=== PATIENT | female | born 1995 | race Caucasian/White ===

== ENCOUNTER 2020-04-19 13:37 | Inpatient (IN) | payer MEDICAID ==
[~2020-04-19] VITALS: Ht 175.3 cm; Wt 82.5 kg
--- NOTE | 2020-04-19 13:51 | NUR ---
LATE ENTRY FOR 1351: report received from ems, pt veronique. ems called to residence for ams and abnormal respirations - on arrival pt has inspiratory stridor, labored breathing. 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 pt denies any drug use. pt reports she was admitted to [facility] 6 weeks (dc'd 03/08/20) for resp failure secondary to pneumonia. 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 all monitors in place on arrival, pt in negative pressure room, droplet plus precautions in place. EDMD Grande at bedside for initial assessment on arrival.
--- NOTE | 2020-04-19 13:58 | NUR ---
pts mother [phone]- pt requesting staff call to notify of condition
[2020-04-19 13:59] LABS: MEAN CORPUSCULAR HEMOGLOBIN 28.9 pg (27.0-34.8); MEAN CORPUSCULAR HGB CONC 31.6 g/dL (32.4-35.8); MEAN PLATELET VOLUME 9.1 fL (7.4-10.4); PLATELET COUNT 330 x10^3/uL (130-400); RED CELL DISTRIBUTION WIDTH 16.5 % (9.6-15.2)
[2020-04-19] MEDS ORDERED: ALBUTEROL/IPRATROPIUM 2.5MG/0.5MG, 3 ML NPPB ONE (14:00)
[2020-04-19] MEDS ORDERED: SODIUM CHLORIDE FLUSH 10ML SYR IVF ONE (14:00)
[2020-04-19] MEDS ORDERED: SODIUM CHLORIDE 0.9% 1,000ML IVBOLUS ONE (14:00)
[2020-04-19] MEDS ORDERED: PLEASE ENTER HEIGHT AND WEIGHT MC SCH (14:00)
[2020-04-19] MEDS ORDERED: ALBUTEROL/IPRATROPIUM 2.5MG/0.5MG, 3 ML ONE (14:00)
[2020-04-19] MEDS ORDERED: RACEPINEPHRINE INH 2.25%, 0.5ML ONE (14:01)
[2020-04-19 14:10] LABS: ALANINE AMINOTRANSFERASE 24 U/L (12-78); ALBUMIN 3.3 g/dL (3.4-5.0); ANION GAP 7 mmol/L (5-15); CALCIUM 8.4 mg/dL (8.5-10.1); CHLORIDE 111 mmol/L (98-107); CREATININE 1.15 mg/dL (0.55-1.02)
[2020-04-19 14:12] LABS: ALKALINE PHOSPHATASE 57 U/L (45-117); BILIRUBIN,TOTAL 0.4 mg/dL (0.2-1.0); TOTAL PROTEIN 6.7 g/dL (6.4-8.2)
[2020-04-19] MEDS ORDERED: DEXAMETHASONE 4 MG/ML, 5ML ONE (14:18)
--- NOTE | 2020-04-19 14:20 | NUR ---
pt to xray, per MD Grande, xray is priority prior to nebulized meds . pt a&o, resp status unchanged upon transport, speaking in 5-6 word sentences before needing next breath.
[2020-04-19 14:21] LABS: SALICYLATE LEVEL < 1.7 mg/dL (2.8-20.0)
[2020-04-19 14:26] LABS: MD YES
[2020-04-19 14:30] LABS: BAND#(MANUAL) 2.24 x10^3/uL; BANDS%(MANUAL) 8 % (0-7); LYMPH#(MANUAL) 2.52 x10^3/uL (1-3.4); LYMPHS% (MANUAL) 9 % (22-44); MONOS% (MANUAL) 5 % (2-9); SEG#(MANUAL) 21.84 x10^3/uL (1.8-6.8); SEGS% (MANUAL) 78 % (42-75)
[2020-04-19 14:31] LABS: <PLATELET ESTIMATE> ADEQUATE; <RBC MORPHOLOGY> NORMAL; LARGE PLATELETS 1+
--- NOTE | 2020-04-19 14:39 | NUR ---
pt back from xray, remains stridorous, speaking in 5-6 word sentences without needing breath. albuterol neb in progress by this RN, POC discussed with MD. orders requested for nebulized racemic epi and decadron IVP.
--- NOTE | 2020-04-19 14:43 | NUR ---
made aware pt has recently had prolonged hospitalization at [facility], record request in progress by UC.
[2020-04-19] MEDS ORDERED: [UNRECOGNIZED DRUG - OTHER] PO (14:48)
[2020-04-19] MEDS ORDERED: CEFTRIAXONE PMX 1GM/50ML 50 ML IVPB ONE (15:00)
[2020-04-19] MEDS ORDERED: DEXAMETHASONE 4 MG/ML, 1ML IVPush ONE (15:00)
[2020-04-19] MEDS ORDERED: RACEPINEPHRINE INH 2.25%, 0.5ML NPPB ONE (15:00)
--- NOTE | 2020-04-19 15:12 | NUR ---
BEDSIDE REPORT FROM CECILIA RN, ASSUMED CARE OF PT AT THIS TIME. CECILIA RN AT BEDSIDE TO GIVE RACEMIC EPI AND STEROIDS. ON PHONE WITH ANESTHESIA
--- NOTE | 2020-04-19 15:29 | NUR ---
RACEMIC EPI ADMINISTERED, DECADRON ADMIN, PT IS DROWSY, RESPS STILL LABORED, PT IS STILL STRIDOROUS. PUPILS NOW SMALLER, 2MM. LOLI AGUAYO NOTIFIED. ERP HAS REASSESSED PT X 2. ENT AND ANESTHESIA CONSULTED TO ASSESS FOR AIRWAY OPTIONS. NO IMPROVEMENT IN RESPIRATORY STATUS S/P RACEMIC EPI NEB. ALL MONITORS IN PLACE. PT IS SINUS TACH RATE 110'S WITH NO ECTOPY. SPO2 100% ON 2L/MIN VIA NC. LOLI AGUAYO AND ENT MD AT BEDSIDE AT THIS TIME. REPORT GIVEN TO MUKESH SHELDON WHO IS ASSUMING CARE AT THIS TIME.
--- NOTE | 2020-04-19 16:01 | NUR ---
ENT DR AT BEDSIDE, PT TO GO TO CT
--- NOTE | 2020-04-19 16:19 | NUR ---
[facility] - [phone]
[2020-04-19 16:32] LABS: AMPHETAMINE SCREEN, URINE Positive (Negative); BARBITURATE SCREEN, URINE Negative (Negative); BENZODIAZEPINE SCREEN, URINE Negative (Negative); CANNABINOID SCREEN, URINE Negative (Negative); COCAINE SCREEN, URINE Negative (Negative); METHADONE SCREEN, URINE Negative (Negative); OPIATE SCREEN, URINE Positive (Negative)
--- NOTE | 2020-04-19 16:44 | NUR ---
RN TO CT AND BACK WITH PT, PT TOLERATED PROCEDURE WELL, VSS STABLE THROUGHOUT.
--- NOTE | 2020-04-19 17:22 | NUR ---
PER ENT DO NOT USE ANYTHING BEDSIDE A 5 OR 6 ETT TO INTUBATE
[2020-04-19] MEDS ORDERED: POTASSIUM CHLORIDE 40 MEQ in SODIUM CHLORIDE 0.9% 500 ML IV ONE (17:30)
[2020-04-19] MEDS ORDERED: CEFTRIAXONE PMX 1GM/50ML 50 ML ONE (17:35)
--- NOTE | 2020-04-19 17:43 | NUR ---
ENT AT BEDSIDE TO UPDATE PT ON POC, PT DECLINING INTUBATION AT THIS TIME AND WOULD LIKE TO TRY OBSERVATION WITH ABX AND STEROIDS, PT DEMONSTRATES UNDERSTANDING OF RISKS. AWAITING ICU BED. PT ON 2LNC SPO2 98%. PT HAS AUDIBLE STRIDOR WORSE WHEN SLEEPING AND RESOLVED WITH AWAKENING AND HEAD TILT. PT ON MONITOR, CALL LIGHT WITHIN REACH.
[2020-04-19] MEDS ORDERED: RACEPINEPHRINE INH 2.25%, 0.5ML NPPB PRN (18:00)
[2020-04-19] MEDS ORDERED: VANCOMYCIN PER PHARMACY MC PRN (18:00)
[2020-04-19] MEDS ORDERED: ONDANSETRON 2MG/ML, 2ML IVPush PRN (18:00)
[2020-04-19] MEDS ORDERED: NALOXONE 0.4 MG/ML, 1ML IVPush ONE (18:00)
[2020-04-19] MEDS ORDERED: LIDOCAINE 4%, 4 ML SYR/CANN TP ONE (18:16)
[2020-04-19 18:18] LABS: FREE T4 (FREE THYROXINE) 1.33 ng/dL (0.76-1.46)
[2020-04-19] MEDS ORDERED: LIDOCAINE-MPF 2% ,5ML ONE (18:20)
--- NOTE | 2020-04-19 18:23 | NUR ---
PT TAKEN TO OR TO BE INTUBATED WITH ANESTHESIA, RN REPORTED TO ANESTHESIA PER ENT ONLY 5.0 OR 6.0 ETT. REPORT TO ZEB MAYORGA IN ICU.
--- NOTE | 2020-04-19 18:25 | NUR ---
TO CALL PTS MOTHER
[2020-04-19] MEDS ORDERED: NOREPINEPHRINE 8 MG in SODIUM CHLORIDE 0.9% 242 ML IV PRN (18:26)
[2020-04-19] MEDS ORDERED: FENTANYL PF 100 MCG/2ML IVPush PRN (18:30)
[2020-04-19] MEDS ORDERED: PHARMACY MAY ADJ FOR RENAL FX MC SCH (18:30)
[2020-04-19] MEDS ORDERED: FAMOTIDINE 20 MG/2 ML IV SCH (18:30)
[2020-04-19] MEDS ORDERED: DEXTROSE 4 GM TAB.CHEW PO PRN (18:30)
[2020-04-19] MEDS ORDERED: LACTULOSE 20 GM/30 ML UDC NG PRN (18:30)
[2020-04-19] MEDS ORDERED: SENNA 176 MG/5 ML ORAL SOL NG PRN (18:30)
[2020-04-19] MEDS ORDERED: BISACODYL 10 MG SUPP PR PRN (18:30)
[2020-04-19] MEDS ORDERED: SENNA/DOCUSATE TABLET NG PRN (18:30)
[2020-04-19] MEDS ORDERED: GLUCAGON 1 MG IM PRN (18:30)
[2020-04-19] MEDS ORDERED: DEXTROSE 50%, 50ML SYRINGE IVPush PRN (18:30)
[2020-04-19] MEDS ORDERED: SODIUM CHLORIDE FLUSH 10ML SYR IVF PRN (19:00)
[2020-04-19] MEDS: PROPOFOL 100 ML IV PRN (19:22)
[2020-04-19] MEDS ORDERED: VANCOMYCIN 2,000 MG in SODIUM CHLORIDE 0.9% 500 ML IV ONE (19:30)
[2020-04-19] MEDS: POTASSIUM CHLORIDE 20 MEQ in LACTATED RINGERS 1,000 ML IV SCH (19:39)
[2020-04-19] MEDS ORDERED: PHARMACOKINETIC MONITORING MC PRN (20:00)
[2020-04-19] MEDS: FAMOTIDINE 20 MG/2 ML IVPush SCH (20:08)
[2020-04-19] MEDS: DEXAMETHASONE 4 MG/ML, 1ML IVPush SCH (20:08)
[2020-04-19] MEDS: ENOXAPARIN 40 MG/0.4 ML SQ SCH (20:09)
[2020-04-19] MEDS: SODIUM CHLORIDE FLUSH 10ML SYR IVF SCH (20:10)
[2020-04-19 20:40] VITALS: BP 107/71
[2020-04-19 20:43] LABS: MICROSCOPIC NOT IND
[2020-04-19 20:46] LABS: CHLORIDE,URINE RANDOM 149 mmol/L; POTASSIUM,URINE RANDOM 10 mmol/L; SODIUM,URINE RANDOM 134 mmol/L
[2020-04-19] MEDS: MEROPENEM 1 GM in SODIUM CHLORIDE 0.9% 100 ML IV SCH (22:16)
[2020-04-20] MEDS: PROPOFOL 100 ML IV PRN ×2 (01:24→04:42)
[2020-04-20] MEDS: DEXAMETHASONE 4 MG/ML, 1ML IVPush SCH ×4 (01:29→19:32)
[2020-04-20 04:27] VITALS: BP 108/65
[2020-04-20 04:41] LABS: BASOPHILS # (AUTO) 0.02 x10^3/uL (0-0.1); BASOPHILS % (AUTO) 0 % (0-1); EOSINOPHILS # (AUTO) 0.02 x10^3/uL (0-0.4); EOSINOPHILS % (AUTO) 0 % (1-7); LYMPHOCYTES # (AUTO) 1.15 x10^3/uL (1-3.4); LYMPHOCYTES % (AUTO) 14 % (22-44); MD NO; MEAN CORPUSCULAR HEMOGLOBIN 28.6 pg (27.0-34.8); MEAN CORPUSCULAR HGB CONC 31.9 g/dL (32.4-35.8); MEAN PLATELET VOLUME 9.8 fL (7.4-10.4); MONOCYTES # (AUTO) 0.07 x10^3/uL (0.2-0.8); MONOCYTES % (AUTO) 1 % (2-9); NEUTROPHILS # (AUTO) 7.15 x10^3/uL (1.8-6.8); NEUTROPHILS % (AUTO) 85 % (42-75); PLATELET COUNT 302 x10^3/uL (130-400); RED BLOOD COUNT 4.12 x10^6/uL (3.82-5.3); RED CELL DISTRIBUTION WIDTH 16.2 % (9.6-15.2)
[2020-04-20 04:48] LABS: ALANINE AMINOTRANSFERASE 21 U/L (12-78); ALBUMIN 2.9 g/dL (3.4-5.0); ANION GAP 6 mmol/L (5-15); CALCIUM 8.5 mg/dL (8.5-10.1); CHLORIDE 109 mmol/L (98-107)
[2020-04-20 04:51] LABS: ALKALINE PHOSPHATASE 50 U/L (45-117); BILIRUBIN,TOTAL 0.6 mg/dL (0.2-1.0); CREATININE 0.52 mg/dL (0.55-1.02); TOTAL PROTEIN 6.1 g/dL (6.4-8.2)
[2020-04-20] MEDS: MEROPENEM 1 GM in SODIUM CHLORIDE 0.9% 100 ML IV SCH ×3 (05:17→21:23)
[2020-04-20] MEDS: VANCOMYCIN 1,600 MG in SODIUM CHLORIDE 0.9% 250 ML IV SCH ×2 (08:29→19:32)
[2020-04-20] MEDS: POTASSIUM CHLORIDE 20 MEQ in LACTATED RINGERS 1,000 ML IV SCH (08:30)
[2020-04-20] MEDS: FAMOTIDINE 20 MG/2 ML IVPush SCH ×2 (08:30→19:32)
[2020-04-20] MEDS: SODIUM CHLORIDE FLUSH 10ML SYR IVF SCH ×2 (08:30→19:32)
[2020-04-20] MEDS: DEXMEDETOMIDINE 400 MCG in SODIUM CHLORIDE 0.9% 96 ML IV PRN ×3 (08:53→21:23)
[2020-04-20] MEDS: LACTATED RINGERS 1,000 ML IV SCH (11:13)
[2020-04-20] MEDS: ENOXAPARIN 40 MG/0.4 ML SQ SCH (19:31)
[2020-04-21] MEDS: LACTATED RINGERS 1,000 ML IV SCH ×2 (00:01→17:01)
[2020-04-21] MEDS: DEXAMETHASONE 4 MG/ML, 1ML IVPush SCH ×3 (02:03→17:01)
[2020-04-21 04:27] LABS: BASOPHILS # (AUTO) 0.02 x10^3/uL (0-0.1); BASOPHILS % (AUTO) 0 % (0-1); EOSINOPHILS # (AUTO) 0.02 x10^3/uL (0-0.4); EOSINOPHILS % (AUTO) 0 % (1-7); LYMPHOCYTES # (AUTO) 0.96 x10^3/uL (1-3.4); LYMPHOCYTES % (AUTO) 7 % (22-44); MD NO; MEAN CORPUSCULAR HEMOGLOBIN 28.8 pg (27.0-34.8); MEAN CORPUSCULAR HGB CONC 32.6 g/dL (32.4-35.8); MEAN PLATELET VOLUME 9.9 fL (7.4-10.4); MONOCYTES % (AUTO) 1 % (2-9); NEUTROPHILS # (AUTO) 12.94 x10^3/uL (1.8-6.8); NEUTROPHILS % (AUTO) 92 % (42-75); PLATELET COUNT 339 x10^3/uL (130-400); RED BLOOD COUNT 4.13 x10^6/uL (3.82-5.3); RED CELL DISTRIBUTION WIDTH 16.5 % (9.6-15.2)
[2020-04-21 04:37] VITALS: BP 90/52
[2020-04-21 04:37] LABS: ANION GAP 6 mmol/L (5-15); CALCIUM 8.6 mg/dL (8.5-10.1); CHLORIDE 110 mmol/L (98-107); CREATININE 0.57 mg/dL (0.55-1.02)
[2020-04-21] MEDS: MEROPENEM 1 GM in SODIUM CHLORIDE 0.9% 100 ML IV SCH (05:45)
[2020-04-21] MEDS: VANCOMYCIN 1,600 MG in SODIUM CHLORIDE 0.9% 250 ML IV SCH ×2 (09:22→21:02)
[2020-04-21] MEDS: SODIUM CHLORIDE FLUSH 10ML SYR IVF SCH ×2 (09:23→21:06)
[2020-04-21] MEDS: FAMOTIDINE 20 MG/2 ML IVPush SCH ×2 (09:23→21:02)
[2020-04-21] MEDS ORDERED: OMNIPAQUE 350 MG/ML, 100ML BOTTLE ONE (11:04)
[2020-04-21] MEDS: ENOXAPARIN 40 MG/0.4 ML SQ SCH (21:02)
[2020-04-22] MEDS: DEXAMETHASONE 4 MG/ML, 1ML IVPush SCH ×3 (02:44→17:40)
[2020-04-22 04:00] VITALS: BP 122/89
[2020-04-22 05:26] LABS: ANION GAP 6 mmol/L (5-15); CALCIUM 8.1 mg/dL (8.5-10.1); CHLORIDE 108 mmol/L (98-107); CREATININE 0.46 mg/dL (0.55-1.02); TRIGLYCERIDES 117 mg/dL (50-200)
[2020-04-22 05:28] LABS: MEAN CORPUSCULAR HEMOGLOBIN 28.5 pg (27.0-34.8); MEAN CORPUSCULAR HGB CONC 32.1 g/dL (32.4-35.8); MEAN PLATELET VOLUME 10.2 fL (7.4-10.4); PLATELET COUNT 269 x10^3/uL (130-400); RED BLOOD COUNT 4.18 x10^6/uL (3.82-5.3); RED CELL DISTRIBUTION WIDTH 16.6 % (9.6-15.2)
[2020-04-22 06:13] LABS: BASOPHILS # (AUTO) 0.15 x10^3/uL (0-0.1); BASOPHILS % (AUTO) 1 % (0-1); EOSINOPHILS # (AUTO) 0.01 x10^3/uL (0-0.4); EOSINOPHILS % (AUTO) 0 % (1-7); LYMPHOCYTES # (AUTO) 1.23 x10^3/uL (1-3.4); LYMPHOCYTES % (AUTO) 6 % (22-44); MD SCAN; MONOCYTES # (AUTO) 0.56 x10^3/uL (0.2-0.8); MONOCYTES % (AUTO) 3 % (2-9); NEUTROPHILS # (AUTO) 17.64 x10^3/uL (1.8-6.8); NEUTROPHILS % (AUTO) 90 % (42-75)
[2020-04-22] MEDS: LACTATED RINGERS 1,000 ML IV SCH (09:20)
[2020-04-22] MEDS: FAMOTIDINE 20 MG/2 ML IVPush SCH ×2 (09:21→19:51)
[2020-04-22] MEDS: SODIUM CHLORIDE FLUSH 10ML SYR IVF SCH ×2 (09:21→19:52)
[2020-04-22] MEDS: VANCOMYCIN 1,600 MG in SODIUM CHLORIDE 0.9% 250 ML IV SCH (09:23)
[2020-04-22] MEDS: LIDOCAINE-MPF 1%, 2ML ENDO PRN ×3 (16:17→21:29)
[2020-04-22] MEDS: VANCOMYCIN 1,700 MG in SODIUM CHLORIDE 0.9% 250 ML IV SCH (17:30)
[2020-04-22] MEDS: ENOXAPARIN 40 MG/0.4 ML SQ SCH (19:51)
[2020-04-23] MEDS: LIDOCAINE-MPF 1%, 2ML ENDO PRN ×5 (02:05→23:45)
[2020-04-23] MEDS: DEXAMETHASONE 4 MG/ML, 1ML IVPush SCH ×3 (02:25→17:50)
[2020-04-23] MEDS: LACTATED RINGERS 1,000 ML IV SCH ×2 (02:45→17:51)
[2020-04-23] MEDS: DEXMEDETOMIDINE 400 MCG in SODIUM CHLORIDE 0.9% 96 ML IV PRN ×2 (03:35→03:43)
[2020-04-23 04:37] LABS: BASOPHILS # (AUTO) 0.09 x10^3/uL (0-0.1); BASOPHILS % (AUTO) 1 % (0-1); EOSINOPHILS % (AUTO) 0 % (1-7); LYMPHOCYTES # (AUTO) 1.44 x10^3/uL (1-3.4); LYMPHOCYTES % (AUTO) 9 % (22-44); MD NO; MEAN CORPUSCULAR HGB CONC 32.5 g/dL (32.4-35.8); MEAN PLATELET VOLUME 10.5 fL (7.4-10.4); MONOCYTES # (AUTO) 0.47 x10^3/uL (0.2-0.8); MONOCYTES % (AUTO) 3 % (2-9); NEUTROPHILS # (AUTO) 13.62 x10^3/uL (1.8-6.8); NEUTROPHILS % (AUTO) 87 % (42-75); PLATELET COUNT 256 x10^3/uL (130-400); RED BLOOD COUNT 4.09 x10^6/uL (3.82-5.3); RED CELL DISTRIBUTION WIDTH 16.4 % (9.6-15.2)
[2020-04-23 04:47] LABS: ANION GAP 5 mmol/L (5-15); CALCIUM 8.1 mg/dL (8.5-10.1); CHLORIDE 105 mmol/L (98-107)
[2020-04-23 04:48] LABS: CREATININE 0.48 mg/dL (0.55-1.02)
[2020-04-23] MEDS: VANCOMYCIN 1,700 MG in SODIUM CHLORIDE 0.9% 250 ML IV SCH ×2 (06:21→17:46)
[2020-04-23] MEDS: SODIUM CHLORIDE FLUSH 10ML SYR IVF SCH ×2 (10:31→19:41)
[2020-04-23] MEDS: FAMOTIDINE 20 MG/2 ML IVPush SCH ×2 (10:31→19:41)
[2020-04-23] MEDS: ENOXAPARIN 40 MG/0.4 ML SQ SCH (19:41)
[2020-04-24] MEDS: DEXAMETHASONE 4 MG/ML, 1ML IVPush SCH ×3 (01:44→17:26)
[2020-04-24] MEDS: LIDOCAINE-MPF 1%, 2ML ENDO PRN ×5 (03:44→22:14)
[2020-04-24 05:04] LABS: MEAN CORPUSCULAR HEMOGLOBIN 29.2 pg (27.0-34.8); MEAN CORPUSCULAR HGB CONC 32.6 g/dL (32.4-35.8); MEAN PLATELET VOLUME 10.5 fL (7.4-10.4); PLATELET COUNT 204 x10^3/uL (130-400); RED BLOOD COUNT 4.17 x10^6/uL (3.82-5.3); RED CELL DISTRIBUTION WIDTH 16.4 % (9.6-15.2)
[2020-04-24 05:12] LABS: VANCOMYCIN,TROUGH 10.4 mcg/mL (5.0-10.0)
[2020-04-24] MEDS: VANCOMYCIN 1,700 MG in SODIUM CHLORIDE 0.9% 250 ML IV SCH (05:36)
[2020-04-24 06:06] LABS: BASOPHILS # (AUTO) 0.07 x10^3/uL (0-0.1); BASOPHILS % (AUTO) 0 % (0-1); EOSINOPHILS % (AUTO) 0 % (1-7); LYMPHOCYTES % (AUTO) 6 % (22-44); MD SCAN; MONOCYTES # (AUTO) 0.21 x10^3/uL (0.2-0.8); MONOCYTES % (AUTO) 1 % (2-9); NEUTROPHILS # (AUTO) 15.06 x10^3/uL (1.8-6.8); NEUTROPHILS % (AUTO) 93 % (42-75)
[2020-04-24] MEDS: SODIUM CHLORIDE FLUSH 10ML SYR IVF SCH ×2 (08:37→20:45)
[2020-04-24] MEDS: FAMOTIDINE 20 MG/2 ML IVPush SCH ×2 (08:37→20:44)
[2020-04-24] MEDS: LEVOFLOXACIN/PMX 750MG/150ML 150 ML IV SCH (08:37)
[2020-04-24] MEDS: DEXMEDETOMIDINE 400 MCG in SODIUM CHLORIDE 0.9% 96 ML IV PRN (12:43)
[2020-04-24] MEDS ORDERED: DIAZEPAM INTENSOL 5 MG/ML PO PRN (17:00)
[2020-04-24] MEDS: DIAZEPAM 5 MG TABLET PO PRN (17:26)
[2020-04-24] MEDS: VANCOMYCIN 1,800 MG in SODIUM CHLORIDE 0.9% 250 ML IV SCH (17:26)
[2020-04-24] MEDS ORDERED: DIAZEPAM 5 MG TABLET PO PRN (17:30)
[2020-04-24] MEDS: PROPOFOL 100 ML IV PRN (18:53)
[2020-04-24] MEDS: ENOXAPARIN 40 MG/0.4 ML SQ SCH (20:45)
[2020-04-25] MEDS: LIDOCAINE-MPF 1%, 2ML ENDO PRN ×10 (00:43→23:50)
[2020-04-25] MEDS: DEXAMETHASONE 4 MG/ML, 1ML IVPush SCH ×3 (02:40→18:06)
[2020-04-25 04:23] LABS: BASOPHILS # (AUTO) 0.19 x10^3/uL (0-0.1); BASOPHILS % (AUTO) 1 % (0-1); EOSINOPHILS # (AUTO) 0.03 x10^3/uL (0-0.4); EOSINOPHILS % (AUTO) 0 % (1-7); LYMPHOCYTES # (AUTO) 1.28 x10^3/uL (1-3.4); LYMPHOCYTES % (AUTO) 9 % (22-44); MD NO; MEAN CORPUSCULAR HEMOGLOBIN 28.5 pg (27.0-34.8); MEAN CORPUSCULAR HGB CONC 32.2 g/dL (32.4-35.8); MEAN PLATELET VOLUME 10.7 fL (7.4-10.4); MONOCYTES # (AUTO) 0.67 x10^3/uL (0.2-0.8); MONOCYTES % (AUTO) 5 % (2-9); NEUTROPHILS # (AUTO) 12.69 x10^3/uL (1.8-6.8); NEUTROPHILS % (AUTO) 85 % (42-75); PLATELET COUNT 227 x10^3/uL (130-400); RED BLOOD COUNT 4.36 x10^6/uL (3.82-5.3)
[2020-04-25] MEDS: VANCOMYCIN 1,800 MG in SODIUM CHLORIDE 0.9% 250 ML IV SCH ×2 (05:21→18:06)
[2020-04-25] MEDS: LEVOFLOXACIN/PMX 750MG/150ML 150 ML IV SCH (10:14)
[2020-04-25] MEDS: SODIUM CHLORIDE FLUSH 10ML SYR IVF SCH ×2 (10:14→21:12)
[2020-04-25] MEDS: FAMOTIDINE 20 MG/2 ML IVPush SCH ×2 (10:15→21:12)
[2020-04-25] MEDS: DIAZEPAM 5 MG TABLET PO PRN (11:52)
[2020-04-25] MEDS: ENOXAPARIN 40 MG/0.4 ML SQ SCH (21:11)
[2020-04-26] MEDS: DEXAMETHASONE 4 MG/ML, 1ML IVPush SCH ×3 (02:20→17:20)
[2020-04-26] MEDS: LIDOCAINE-MPF 1%, 2ML ENDO PRN ×7 (02:58→22:47)
[2020-04-26 04:45] LABS: BASOPHILS # (AUTO) 0.13 x10^3/uL (0-0.1); BASOPHILS % (AUTO) 1 % (0-1); EOSINOPHILS # (AUTO) 0.11 x10^3/uL (0-0.4); EOSINOPHILS % (AUTO) 1 % (1-7); LYMPHOCYTES # (AUTO) 1.07 x10^3/uL (1-3.4); LYMPHOCYTES % (AUTO) 7 % (22-44); MD NO; MEAN CORPUSCULAR HEMOGLOBIN 28.4 pg (27.0-34.8); MEAN CORPUSCULAR HGB CONC 31.8 g/dL (32.4-35.8); MEAN PLATELET VOLUME 11.4 fL (7.4-10.4); MONOCYTES % (AUTO) 3 % (2-9); NEUTROPHILS # (AUTO) 14.73 x10^3/uL (1.8-6.8); NEUTROPHILS % (AUTO) 89 % (42-75); PLATELET COUNT 273 x10^3/uL (130-400); RED BLOOD COUNT 4.71 x10^6/uL (3.82-5.3); RED CELL DISTRIBUTION WIDTH 16.3 % (9.6-15.2)
[2020-04-26] MEDS: VANCOMYCIN 1,800 MG in SODIUM CHLORIDE 0.9% 250 ML IV SCH ×2 (06:03→17:20)
[2020-04-26] MEDS: DIAZEPAM 5 MG TABLET PO PRN (06:42)
[2020-04-26] MEDS: FAMOTIDINE 20 MG/2 ML IVPush SCH ×2 (08:48→20:58)
[2020-04-26] MEDS: SODIUM CHLORIDE FLUSH 10ML SYR IVF SCH ×2 (08:48→20:59)
[2020-04-26] MEDS: LEVOFLOXACIN/PMX 750MG/150ML 150 ML IV SCH (08:48)
[2020-04-26] MEDS: PROPOFOL 100 ML IV PRN (08:50)
[2020-04-26] MEDS: ENOXAPARIN 40 MG/0.4 ML SQ SCH (17:20)
[2020-04-26] MEDS ORDERED: ALUMINUM/MAG/SIMETHICONE 30 ML UDC NG PRN ×2 (18:00)
[2020-04-27] MEDS: LIDOCAINE-MPF 1%, 2ML ENDO PRN ×3 (02:10→10:30)
[2020-04-27] MEDS: DEXAMETHASONE 4 MG/ML, 1ML IVPush SCH ×3 (02:12→17:16)
[2020-04-27] MEDS: PROPOFOL 100 ML IV PRN ×2 (02:13→14:20)
[2020-04-27 04:00] VITALS: BP 93/56
[2020-04-27 05:32] LABS: CHLORIDE 105 mmol/L (98-107); MEAN CORPUSCULAR HEMOGLOBIN 28.3 pg (27.0-34.8); MEAN CORPUSCULAR HGB CONC 32.1 g/dL (32.4-35.8); MEAN PLATELET VOLUME 10.9 fL (7.4-10.4); PLATELET COUNT 250 x10^3/uL (130-400); RED BLOOD COUNT 4.66 x10^6/uL (3.82-5.3); RED CELL DISTRIBUTION WIDTH 16.3 % (9.6-15.2)
[2020-04-27 05:39] LABS: ALANINE AMINOTRANSFERASE 60 U/L (12-78); ALBUMIN 2.8 g/dL (3.4-5.0); ALKALINE PHOSPHATASE 51 U/L (45-117); ANION GAP 6 mmol/L (5-15); BILIRUBIN,TOTAL 0.7 mg/dL (0.2-1.0); CALCIUM 8.8 mg/dL (8.5-10.1); CREATININE 0.55 mg/dL (0.55-1.02); TOTAL PROTEIN 6.2 g/dL (6.4-8.2); VANCOMYCIN,TROUGH 11.4 mcg/mL (5.0-10.0)
[2020-04-27] MEDS: VANCOMYCIN 1,800 MG in SODIUM CHLORIDE 0.9% 250 ML IV SCH (06:29)
[2020-04-27 06:40] LABS: BASOPHILS # (AUTO) 0.08 x10^3/uL (0-0.1); BASOPHILS % (AUTO) 0 % (0-1); EOSINOPHILS # (AUTO) 0.03 x10^3/uL (0-0.4); EOSINOPHILS % (AUTO) 0 % (1-7); LYMPHOCYTES # (AUTO) 1.02 x10^3/uL (1-3.4); LYMPHOCYTES % (AUTO) 5 % (22-44); MD SCAN; MONOCYTES # (AUTO) 0.69 x10^3/uL (0.2-0.8); MONOCYTES % (AUTO) 3 % (2-9); NEUTROPHILS % (AUTO) 91 % (42-75)
[2020-04-27] MEDS ORDERED: BENZOCAINE AEROSOL SPRAY 20%, 60ML TP PRN (08:00)
[2020-04-27] MEDS: FAMOTIDINE 20 MG/2 ML IVPush SCH ×2 (08:48→22:00)
[2020-04-27] MEDS: LEVOFLOXACIN/PMX 750MG/150ML 150 ML IV SCH (08:48)
[2020-04-27] MEDS: SODIUM CHLORIDE FLUSH 10ML SYR IVF SCH ×2 (08:48→22:00)
[2020-04-27] MEDS: LACTULOSE 20 GM/30 ML UDC NG PRN (09:58)
[2020-04-27] MEDS: VANCOMYCIN 1,500 MG in SODIUM CHLORIDE 0.9% 250 ML IV SCH ×2 (14:03→23:00)
[2020-04-27] MEDS ORDERED: MIDAZOLAM 1 MG/ML, 2ML IVPush PRN (16:00)
[2020-04-27] MEDS: DEXMEDETOMIDINE 400 MCG in SODIUM CHLORIDE 0.9% 96 ML IV PRN ×2 (17:17→23:01)
[2020-04-27] MEDS: ENOXAPARIN 40 MG/0.4 ML SQ SCH (17:17)
[2020-04-27] MEDS ORDERED: SODIUM CHLORIDE 0.9% 500 ML IV ONE (20:30)
[2020-04-28] MEDS: DEXAMETHASONE 4 MG/ML, 1ML IVPush SCH ×3 (02:31→16:36)
[2020-04-28 03:56] VITALS: BP 113/76
[2020-04-28 04:43] LABS: BASOPHILS % (AUTO) 0 % (0-1); EOSINOPHILS # (AUTO) 0.07 x10^3/uL (0-0.4); EOSINOPHILS % (AUTO) 1 % (1-7); LYMPHOCYTES # (AUTO) 0.93 x10^3/uL (1-3.4); LYMPHOCYTES % (AUTO) 9 % (22-44); MD NO; MEAN CORPUSCULAR HEMOGLOBIN 28.3 pg (27.0-34.8); MEAN CORPUSCULAR HGB CONC 31.8 g/dL (32.4-35.8); MEAN PLATELET VOLUME 10.8 fL (7.4-10.4); MONOCYTES # (AUTO) 0.32 x10^3/uL (0.2-0.8); MONOCYTES % (AUTO) 3 % (2-9); NEUTROPHILS # (AUTO) 9.39 x10^3/uL (1.8-6.8); NEUTROPHILS % (AUTO) 88 % (42-75); PLATELET COUNT 217 x10^3/uL (130-400); RED BLOOD COUNT 4.37 x10^6/uL (3.82-5.3); RED CELL DISTRIBUTION WIDTH 16.4 % (9.6-15.2)
[2020-04-28] MEDS: VANCOMYCIN 1,500 MG in SODIUM CHLORIDE 0.9% 250 ML IV SCH ×3 (05:52→22:09)
[2020-04-28] MEDS: DEXMEDETOMIDINE 400 MCG in SODIUM CHLORIDE 0.9% 96 ML IV PRN ×2 (05:53→11:34)
[2020-04-28] MEDS ORDERED: OMNIPAQUE 350 MG/ML, 100ML BOTTLE ONE (09:17)
[2020-04-28] MEDS: LEVOFLOXACIN/PMX 750MG/150ML 150 ML IV SCH (09:31)
[2020-04-28] MEDS: LACTULOSE 20 GM/30 ML UDC NG PRN ×2 (09:31→22:09)
[2020-04-28] MEDS: FAMOTIDINE 20 MG/2 ML IVPush SCH ×2 (09:31→22:10)
[2020-04-28] MEDS: SODIUM CHLORIDE FLUSH 10ML SYR IVF SCH ×2 (09:33→22:10)
[2020-04-28] MEDS: MIDAZOLAM HCL 50 MG in SODIUM CHLORIDE 0.9% 40 ML IV PRN (16:19)
[2020-04-28] MEDS: ENOXAPARIN 40 MG/0.4 ML SQ SCH (16:20)
[2020-04-29] MEDS: DEXAMETHASONE 4 MG/ML, 1ML IVPush SCH ×3 (01:56→17:27)
[2020-04-29 04:00] VITALS: BP 99/62
[2020-04-29 04:28] LABS: BASOPHILS # (AUTO) 0.09 x10^3/uL (0-0.1); BASOPHILS % (AUTO) 1 % (0-1); EOSINOPHILS # (AUTO) 0.02 x10^3/uL (0-0.4); EOSINOPHILS % (AUTO) 0 % (1-7); LYMPHOCYTES # (AUTO) 0.95 x10^3/uL (1-3.4); LYMPHOCYTES % (AUTO) 6 % (22-44); MD NO; MEAN CORPUSCULAR HEMOGLOBIN 28.6 pg (27.0-34.8); MEAN CORPUSCULAR HGB CONC 32.3 g/dL (32.4-35.8); MEAN PLATELET VOLUME 10.6 fL (7.4-10.4); MONOCYTES # (AUTO) 0.49 x10^3/uL (0.2-0.8); MONOCYTES % (AUTO) 3 % (2-9); NEUTROPHILS # (AUTO) 13.54 x10^3/uL (1.8-6.8); NEUTROPHILS % (AUTO) 90 % (42-75); PLATELET COUNT 244 x10^3/uL (130-400); RED BLOOD COUNT 4.45 x10^6/uL (3.82-5.3); RED CELL DISTRIBUTION WIDTH 16.1 % (9.6-15.2)
[2020-04-29] MEDS: MIDAZOLAM HCL 50 MG in SODIUM CHLORIDE 0.9% 40 ML IV PRN ×2 (04:51→19:35)
[2020-04-29] MEDS: VANCOMYCIN 1,500 MG in SODIUM CHLORIDE 0.9% 250 ML IV SCH ×3 (05:13→21:08)
[2020-04-29] MEDS ORDERED: MAGNESIUM CITRATE 300ML ORAL SOL PO ONE ×2 (08:30→09:30)
[2020-04-29] MEDS: FAMOTIDINE 20 MG/2 ML IVPush SCH ×2 (09:34→21:08)
[2020-04-29] MEDS: LEVOFLOXACIN/PMX 750MG/150ML 150 ML IV SCH (09:34)
[2020-04-29] MEDS: SODIUM CHLORIDE FLUSH 10ML SYR IVF SCH ×2 (09:34→21:07)
[2020-04-29] MEDS: ENOXAPARIN 40 MG/0.4 ML SQ SCH (17:00)
[2020-04-30] MEDS: DEXAMETHASONE 4 MG/ML, 1ML IVPush SCH ×2 (01:26→15:28)
[2020-04-30 04:30] VITALS: BP 88/52
[2020-04-30 04:42] LABS: BASOPHILS # (AUTO) 0.05 x10^3/uL (0-0.1); BASOPHILS % (AUTO) 0 % (0-1); EOSINOPHILS % (AUTO) 0 % (1-7); LYMPHOCYTES # (AUTO) 0.91 x10^3/uL (1-3.4); LYMPHOCYTES % (AUTO) 8 % (22-44); MD NO; MEAN CORPUSCULAR HEMOGLOBIN 28.7 pg (27.0-34.8); MEAN CORPUSCULAR HGB CONC 32.2 g/dL (32.4-35.8); MEAN PLATELET VOLUME 10.4 fL (7.4-10.4); MONOCYTES # (AUTO) 0.31 x10^3/uL (0.2-0.8); MONOCYTES % (AUTO) 3 % (2-9); NEUTROPHILS # (AUTO) 10.93 x10^3/uL (1.8-6.8); NEUTROPHILS % (AUTO) 90 % (42-75); PLATELET COUNT 259 x10^3/uL (130-400); RED CELL DISTRIBUTION WIDTH 16.1 % (9.6-15.2)
[2020-04-30 04:46] LABS: CREATININE 0.53 mg/dL (0.55-1.02)
[2020-04-30] MEDS: VANCOMYCIN 1,500 MG in SODIUM CHLORIDE 0.9% 250 ML IV SCH (05:11)
[2020-04-30] MEDS ORDERED: LIDOCAINE 1%-EPI 1:100K, 20ML ONE (08:13)
[2020-04-30] MEDS ORDERED: EPINEPHRINE TOPICAL SOLN 1 MG/ML, 30ML ONE (08:13)
[2020-04-30] MEDS ORDERED: MIDAZOLAM 1 MG/ML, 2ML ONE (09:18)
[2020-04-30] MEDS ORDERED: FENTANYL PF 100 MCG/2ML ONE ×2 (09:18→10:18)
[2020-04-30] MEDS ORDERED: PROPOFOL 10 MG/ML, 20ML ONE (09:28)
[2020-04-30] MEDS ORDERED: ROCURONIUM 10 MG/ML,10ML ONE (09:28)
[2020-04-30] MEDS ORDERED: PHENYLEPHRINE 10 MG/ML ONE (09:28)
[2020-04-30] MEDS ORDERED: LIDOCAINE 1%-EPI 1:100K, 30ML IM ONE (10:03)
[2020-04-30] MEDS ORDERED: MIDAZOLAM 1 MG/ML, 5ML ONE (10:18)
[2020-04-30] MEDS: FAMOTIDINE 20 MG/2 ML IVPush SCH ×2 (11:53→20:19)
[2020-04-30] MEDS: SODIUM CHLORIDE FLUSH 10ML SYR IVF SCH ×2 (11:54→20:20)
[2020-04-30] MEDS: MIDAZOLAM HCL 50 MG in SODIUM CHLORIDE 0.9% 40 ML IV PRN (17:25)
[2020-04-30] MEDS: ENOXAPARIN 40 MG/0.4 ML SQ SCH (17:35)
[2020-04-30] MEDS: MORPHINE SULFATE 4 MG/ML, 1ML IVPush PRN (20:20)
[2020-05-01] MEDS: DEXAMETHASONE 4 MG/ML, 1ML IVPush SCH (01:36)
[2020-05-01] MEDS: MORPHINE SULFATE 4 MG/ML, 1ML IVPush PRN ×7 (01:37→21:46)
[2020-05-01 04:43] LABS: BASOPHILS # (AUTO) 0.02 x10^3/uL (0-0.1); BASOPHILS % (AUTO) 0 % (0-1); EOSINOPHILS # (AUTO) 0.01 x10^3/uL (0-0.4); EOSINOPHILS % (AUTO) 0 % (1-7); LYMPHOCYTES # (AUTO) 1.01 x10^3/uL (1-3.4); LYMPHOCYTES % (AUTO) 9 % (22-44); MD NO; MEAN CORPUSCULAR HEMOGLOBIN 28.7 pg (27.0-34.8); MEAN CORPUSCULAR HGB CONC 32.4 g/dL (32.4-35.8); MEAN PLATELET VOLUME 10.1 fL (7.4-10.4); MONOCYTES # (AUTO) 0.26 x10^3/uL (0.2-0.8); MONOCYTES % (AUTO) 2 % (2-9); NEUTROPHILS # (AUTO) 9.57 x10^3/uL (1.8-6.8); NEUTROPHILS % (AUTO) 88 % (42-75); PLATELET COUNT 220 x10^3/uL (130-400); RED BLOOD COUNT 4.13 x10^6/uL (3.82-5.3); RED CELL DISTRIBUTION WIDTH 15.9 % (9.6-15.2)
[2020-05-01 05:34] VITALS: BP 105/53
[2020-05-01] MEDS: LACTULOSE 20 GM/30 ML UDC NG PRN ×2 (08:57→21:45)
[2020-05-01] MEDS: SODIUM CHLORIDE FLUSH 10ML SYR IVF SCH ×2 (08:57→21:46)
[2020-05-01] MEDS: FAMOTIDINE 20 MG/2 ML IVPush SCH ×2 (08:57→21:45)
[2020-05-01] MEDS: ENOXAPARIN 40 MG/0.4 ML SQ SCH (17:08)
[2020-05-01] MEDS: MELATONIN 5 MG TABLET PO PRN (23:06)
[2020-05-02] MEDS: ACETAMINOPHEN 325 MG TABLET PO PRN ×3 (03:00→16:44)
[2020-05-02 04:28] LABS: BASOPHILS # (AUTO) 0.02 x10^3/uL (0-0.1); BASOPHILS % (AUTO) 0 % (0-1); EOSINOPHILS % (AUTO) 2 % (1-7); LYMPHOCYTES # (AUTO) 4.07 x10^3/uL (1-3.4); LYMPHOCYTES % (AUTO) 39 % (22-44); MD NO; MEAN CORPUSCULAR HEMOGLOBIN 28.5 pg (27.0-34.8); MEAN CORPUSCULAR HGB CONC 32.3 g/dL (32.4-35.8); MEAN PLATELET VOLUME 9.5 fL (7.4-10.4); MONOCYTES # (AUTO) 0.92 x10^3/uL (0.2-0.8); MONOCYTES % (AUTO) 9 % (2-9); NEUTROPHILS # (AUTO) 5.16 x10^3/uL (1.8-6.8); NEUTROPHILS % (AUTO) 50 % (42-75); PLATELET COUNT 267 x10^3/uL (130-400); RED BLOOD COUNT 4.19 x10^6/uL (3.82-5.3); RED CELL DISTRIBUTION WIDTH 15.6 % (9.6-15.2)
[2020-05-02] MEDS: MORPHINE SULFATE 4 MG/ML, 1ML IVPush PRN (05:43)
[2020-05-02 06:01] VITALS: BP 91/66
[2020-05-02] MEDS ORDERED: MAGNESIUM CITRATE 300ML ORAL SOL PO ONE (08:30)
[2020-05-02] MEDS: SODIUM CHLORIDE FLUSH 10ML SYR IVF SCH ×2 (09:05→20:45)
[2020-05-02] MEDS: FAMOTIDINE 20 MG/2 ML IVPush SCH (09:05)
[2020-05-02 12:35] VITALS: BP 87/57
[2020-05-02] MEDS: ENOXAPARIN 40 MG/0.4 ML SQ SCH (16:44)
[2020-05-02 19:36] VITALS: BP 92/64
[2020-05-02] MEDS: MELATONIN 5 MG TABLET PO PRN (21:00)
[2020-05-03 01:14] VITALS: BP 95/61
[2020-05-03] MEDS: ACETAMINOPHEN 325 MG TABLET PO PRN ×4 (01:28→20:48)
[2020-05-03 05:41] LABS: CREATININE 0.52 mg/dL (0.55-1.02)
[2020-05-03 07:22] VITALS: BP 94/61
[2020-05-03] MEDS: SODIUM CHLORIDE FLUSH 10ML SYR IVF SCH ×2 (09:20→20:44)
[2020-05-03 12:43] VITALS: BP 92/61
[2020-05-03] MEDS: ENOXAPARIN 40 MG/0.4 ML SQ SCH (16:16)
[2020-05-03 19:04] VITALS: BP 96/64
[2020-05-03] MEDS: MELATONIN 5 MG TABLET PO PRN (20:48)
[2020-05-04 00:37] VITALS: BP 104/69
[2020-05-04] MEDS: ACETAMINOPHEN 325 MG TABLET PO PRN ×3 (00:42→17:02)
[2020-05-04 06:49] VITALS: BP 102/70
[2020-05-04] MEDS: SODIUM CHLORIDE FLUSH 10ML SYR IVF SCH ×2 (09:52→21:10)
[2020-05-04 11:54] VITALS: BP 89/67
[2020-05-04 11:57] VITALS: BP 94/65
[2020-05-04] MEDS: ENOXAPARIN 40 MG/0.4 ML SQ SCH (17:02)
[2020-05-04] MEDS: MELATONIN 5 MG TABLET PO PRN (21:10)
[2020-05-04 21:17] VITALS: BP 100/66
[2020-05-05] MEDS: ACETAMINOPHEN 325 MG TABLET PO PRN ×4 (00:14→22:07)
[2020-05-05 03:47] VITALS: BP 105/73
[2020-05-05 07:43] VITALS: BP 114/77
[2020-05-05] MEDS: SODIUM CHLORIDE FLUSH 10ML SYR IVF SCH ×2 (09:26→22:07)
[2020-05-05 12:03] VITALS: BP 105/69
[2020-05-05] MEDS: ENOXAPARIN 40 MG/0.4 ML SQ SCH (17:50)
[2020-05-05 19:18] VITALS: BP 105/72
[2020-05-05] MEDS: MELATONIN 5 MG TABLET PO PRN (22:07)
[2020-05-06 00:56] VITALS: BP 97/65
[2020-05-06 07:52] VITALS: BP 104/69
[2020-05-06] MEDS: SODIUM CHLORIDE FLUSH 10ML SYR IVF SCH ×2 (09:00→21:19)
[2020-05-06] MEDS: ACETAMINOPHEN 325 MG TABLET PO PRN ×3 (09:56→23:50)
[2020-05-06 13:51] VITALS: BP 102/70
[2020-05-06] MEDS: ENOXAPARIN 40 MG/0.4 ML SQ SCH (17:31)
[2020-05-06 20:16] VITALS: BP 99/76
[2020-05-06] MEDS: MELATONIN 5 MG TABLET PO PRN (23:50)
[2020-05-07 00:35] VITALS: BP 106/62
[2020-05-07 04:56] LABS: MEAN CORPUSCULAR HEMOGLOBIN 28.1 pg (27.0-34.8); MEAN CORPUSCULAR HGB CONC 31.5 g/dL (32.4-35.8); MEAN PLATELET VOLUME 9.4 fL (7.4-10.4); PLATELET COUNT 309 x10^3/uL (130-400); RED BLOOD COUNT 4.33 x10^6/uL (3.82-5.3); RED CELL DISTRIBUTION WIDTH 16.2 % (9.6-15.2)
[2020-05-07 05:04] LABS: ANION GAP 3 mmol/L (5-15); CALCIUM 8.9 mg/dL (8.5-10.1); CHLORIDE 107 mmol/L (98-107)
[2020-05-07 05:05] LABS: CREATININE 0.39 mg/dL (0.55-1.02)
[2020-05-07 06:07] LABS: MD YES
[2020-05-07 06:09] LABS: <PLATELET ESTIMATE> ADEQUATE; <PLT MORPHOLOGY> NORMAL PLT MORPH; BAND#(MANUAL) 0.47 x10^3/uL; BANDS%(MANUAL) 3 % (0-7); BASOS#(MANUAL) 0.16 x10^3/uL (0-0.1); BASOS% (MANUAL) 1 % (0-1); EOS#(MANUAL) 0.16 x10^3/uL (0.0-0.4); EOS% (MANUAL) 1 % (1-7); LYMPH#(MANUAL) 2.21 x10^3/uL (1-3.4); LYMPHS% (MANUAL) 14 % (22-44); MONOS#(MANUAL) 0.63 x10^3/uL (0.3-2.7); MONOS% (MANUAL) 4 % (2-9); SEG#(MANUAL) 12.17 x10^3/uL (1.8-6.8); SEGS% (MANUAL) 77 % (42-75)
[2020-05-07 06:10] LABS: <RBC MORPHOLOGY> NORMAL
[2020-05-07] MEDS: ACETAMINOPHEN 325 MG TABLET PO PRN (06:19)
[2020-05-07 07:53] VITALS: BP 104/73
[2020-05-07] MEDS: SODIUM CHLORIDE FLUSH 10ML SYR IVF SCH ×2 (09:00→23:15)
[2020-05-07 14:57] VITALS: BP 103/74
[2020-05-07] MEDS: ENOXAPARIN 40 MG/0.4 ML SQ SCH (17:31)
[2020-05-07 19:43] VITALS: BP 106/70
[2020-05-08 02:02] VITALS: BP 96/62
[2020-05-08 06:34] VITALS: BP 96/63
[2020-05-08] MEDS: SODIUM CHLORIDE FLUSH 10ML SYR IVF SCH ×2 (09:52→19:53)
[2020-05-08] MEDS: ACETAMINOPHEN 325 MG TABLET PO PRN (10:22)
[2020-05-08 12:38] VITALS: BP 100/69
[2020-05-08] MEDS: ENOXAPARIN 40 MG/0.4 ML SQ SCH (17:00)
[2020-05-08 19:03] VITALS: BP 106/73
[2020-05-08] MEDS: MELATONIN 5 MG TABLET PO PRN (19:54)
[2020-05-09 03:36] VITALS: BP 102/63
[2020-05-09 06:16] LABS: CREATININE 0.55 mg/dL (0.55-1.02)
[2020-05-09 08:07] VITALS: BP 97/66
[2020-05-09] MEDS: ACETAMINOPHEN 325 MG TABLET PO PRN (08:35)
[2020-05-09] MEDS: SODIUM CHLORIDE FLUSH 10ML SYR IVF SCH ×2 (09:00→21:37)
[2020-05-09 14:00] VITALS: BP 108/75
[2020-05-09] MEDS: ENOXAPARIN 40 MG/0.4 ML SQ SCH (17:00)
[2020-05-09 19:06] VITALS: BP 113/71
[2020-05-09] MEDS: MELATONIN 5 MG TABLET PO PRN (21:36)
[2020-05-10 01:08] VITALS: BP 109/68
[2020-05-10 06:31] VITALS: BP 108/71
[2020-05-10] MEDS: SODIUM CHLORIDE FLUSH 10ML SYR IVF SCH ×2 (10:57→21:37)
[2020-05-10 12:39] VITALS: BP 103/71
[2020-05-10] MEDS: ENOXAPARIN 40 MG/0.4 ML SQ SCH (17:38)
[2020-05-10 19:41] VITALS: BP 106/66
[2020-05-10] MEDS: MELATONIN 5 MG TABLET PO PRN (21:37)
[2020-05-11 01:42] VITALS: BP 110/72
[2020-05-11 07:14] VITALS: BP 97/64
[2020-05-11] MEDS ORDERED: SENNA 176 MG/5 ML ORAL SOL NG PRN (09:00)
[2020-05-11] MEDS ORDERED: ACETAMINOPHEN 325 MG TABLET PO PRN (09:00)
[2020-05-11 09:03] VITALS: BP 111/78
[2020-05-11] MEDS: SODIUM CHLORIDE FLUSH 10ML SYR IVF SCH ×2 (09:33→20:34)
[2020-05-11 13:05] VITALS: BP 106/75
[2020-05-11 19:22] VITALS: BP 123/81
[2020-05-11] MEDS: MELATONIN 5 MG TABLET PO PRN (20:33)
[2020-05-12 01:18] VITALS: BP 111/71
[2020-05-12 05:39] LABS: CREATININE 0.41 mg/dL (0.55-1.02)
[2020-05-12 07:47] VITALS: BP 102/69
[2020-05-12] MEDS: SODIUM CHLORIDE FLUSH 10ML SYR IVF SCH ×2 (09:39→21:00)
[2020-05-12 14:38] VITALS: BP 122/83
[2020-05-12 20:06] VITALS: BP 111/75
[2020-05-12] MEDS: MELATONIN 5 MG TABLET PO PRN (20:08)
[2020-05-13 01:42] VITALS: BP 99/66
[2020-05-13 07:06] VITALS: BP 98/66
[2020-05-13] MEDS: SODIUM CHLORIDE FLUSH 10ML SYR IVF SCH (09:00)
== END 2020-05-13 11:52 | disposition home or self-care (01) | DRG 4 ==
LOC: MERGE 13:37 → EDBD 13:37 → ED 16:14 → EDIP 17:26 → CCU 18:54 → 4EST 05-02 12:49 → 3N 05-11 08:23
PROVIDERS: ADMIT Hospitalist; ATTEND Internal Medicine
PROC: 5A1955Z Respiratory Ventilation, Greater than 96 Consecutive Hours (ICD-10-PCS; 2020-04-19)
PROC: 0BH17EZ Insertion of Endotracheal Airway into Trachea, Via Natural or Artificial Opening (ICD-10-PCS; 2020-04-19)
PROC: 0CJS8ZZ Inspection of Larynx, Via Natural or Artificial Opening Endoscopic (ICD-10-PCS; 2020-04-30)
PROC: 0B110F4 Bypass Trachea to Cutaneous with Tracheostomy Device, Open Approach (ICD-10-PCS; principal; 2020-04-30 09:00)
DX: J96.21 Acute and chronic respiratory failure with hypoxia (principal); J15.212 Pneumonia due to Methicillin resistant Staphylococcus aureus; N17.0 Acute kidney failure with tubular necrosis; E87.2 Acidosis; Z99.11 Dependence on respirator [ventilator] status; E87.6 Hypokalemia; F15.10 Other stimulant abuse, uncomplicated; F17.200 Nicotine dependence, unspecified, uncomplicated; F41.9 Anxiety disorder, unspecified; J04.10 Acute tracheitis without obstruction; J38.6 Stenosis of larynx; R13.10 Dysphagia, unspecified; Z20.828 Contact with and (suspected) exposure to other viral communicable diseases; Z22.322 Carrier or suspected carrier of Methicillin resistant Staphylococcus aureus; Z88.0 Allergy status to penicillin
CPT/HCPCS: 36415; 36600; 70360; 74018; 74230; 84145; 96374; 96375; 99291; 99292; J3490; 70491; 71045; 80048; 80053; 80202; 80307; 81003; 82436; 82565; 82570; 82803; 83605; 83735; 84100; 84133; 84300; 84439; 84443; 84478; 84703; 85025; 87040; 87070; 87077; 87081; 87186; 87205; 87635; 93005; 94002; 94003; G0378; J0696; J1100; J1650; J1956; J2185; J2250; J2704; J3010; J3370; J3480; Q9967; J2270; J2370; J7030; J7040; J7050; J7120

== ENCOUNTER 2021-03-07 17:10 | Emergency (ER) | payer MEDICAID, OTHER ==
[~2021-03-07] VITALS: Ht 177.8 cm; Wt 85.0 kg
[~2021-03-07 17:10] MED LIST: BUDE0.5A11 NEB; DEXA4TAB66 PO; FOSF3PAC PO; GUAI12009 PO; MONT10TA17 PO; [UNRECOGNIZED DRUG - OTHER] PO
[2021-03-07 18:30] VITALS: BP 130/69
--- NOTE | 2021-03-07 18:30 | NUR ---
RT TO BEDSIDE TO SUCTION TRACH. VSS. NADN. LARA AT BEDSIDE.
--- NOTE | 2021-03-07 18:31 | NUR ---
PT BIBA FROM [facility]. PT HAS TRACH THAT IS PLUGGED AND NEEDS SUCTIONING. ATTACHED TO MONITOR. VSS. NAJERA.
--- NOTE | 2021-03-07 18:54 | NUR ---
REPORT FROM MADDY MAYORGABULL FLOAT FINISHER OF CARE AT THIS TIME.
--- NOTE | 2021-03-07 19:06 | NUR ---
Patient/Caregiver given discharge instructions and they have confirmed that they understand the instructions. Patient ambulatory with steady gait.
== END 2021-03-07 19:52 | disposition home or self-care (01) ==
LOC: ED 19:47
DX: Z43.0 Encounter for attention to tracheostomy (principal); Z87.891 Personal history of nicotine dependence
CPT/HCPCS: 99281

== ENCOUNTER 2021-04-03 16:31 | Emergency (ER) | payer MEDICAID, OTHER ==
[~2021-04-03] VITALS: Ht 170.2 cm; Wt 75.0 kg
--- NOTE | 2021-04-03 16:42 | NUR ---
Pt with 2nd trach after respritory failure after non-compliance with PNA. 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 NADN, no resp distress. MD Clinton to bedside for eval.
--- NOTE | 2021-04-03 16:44 | NUR ---
RT at bedside.
[2021-04-03] MEDS ORDERED: LIDOCAINE-MPF 1%, 5ML ONE (17:11)
--- NOTE | 2021-04-03 17:19 | NUR ---
MD and RT at bedside to replace trach. Pt tolerated well.
--- NOTE | 2021-04-03 17:21 | NUR ---
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
[2021-04-03 18:04] VITALS: BP 97/60
== END 2021-04-03 18:06 | disposition home or self-care (01) ==
LOC: ED 18:00
DX: Z43.0 Encounter for attention to tracheostomy (principal)
CPT/HCPCS: 99283

== ENCOUNTER 2021-07-26 03:35 | Emergency (ER) | payer SELFPAY ==
[~2021-07-26] VITALS: Ht 175.3 cm; Wt 81.8 kg
[2021-07-26] MEDS ORDERED: ALBUTEROL/IPRATROPIUM 2.5MG/0.5MG, 3 ML NPPB ONE (04:00)
[2021-07-26] MEDS ORDERED: PLEASE ENTER HEIGHT AND WEIGHT MC SCH (04:00)
[2021-07-26] MEDS ORDERED: ALBUTEROL/IPRATROPIUM 2.5MG/0.5MG, 3 ML ONE (04:09)
[2021-07-26 04:39] VITALS: BP 116/86
--- NOTE | 2021-07-26 04:56 | NUR ---
Patient given discharge instructions and they have confirmed that they understand the instructions. Patient ambulatory with steady gait. NAD, all questions answered appropriately, denies additional needs at this time. No personal belongings left in room after discharge.
== END 2021-07-26 05:09 | disposition home or self-care (01) ==
LOC: ED 05:05
DX: J20.9 Acute bronchitis, unspecified (principal); J98.01 Acute bronchospasm
CPT/HCPCS: 71045; 93005; 94640; 99283; J7512